=== PATIENT | male | born 1990 | race Caucasian/White ===

== ENCOUNTER 2017-09-06 23:30 | Emergency (ER) | payer MEDICAID, OTHER ==
[~2017-09-06] VITALS: Ht 185.4 cm; Wt 121.0 kg
[2017-09-06 23:45] VITALS: Ht 185.4 cm; Wt 121.0 kg
[2017-09-07] MEDS ORDERED: BUPR150T6 PO (00:54)
[2017-09-07] MEDS ORDERED: LISI10TA2 PO (00:54)
[2017-09-07] MEDS ORDERED: HYDR25TA6 PO (00:54)
[2017-09-07] MEDS ORDERED: AMOX500C2 PO (00:54)
[2017-09-07] MEDS ORDERED: PRED50TA PO (00:54)
--- NOTE | 2017-09-07 00:57 | ERD ---
ER Documentation Chief Complaint Date/Time DATE: 09/07/17 TIME: 00:55 Chief Complaint sore throat x 5 days. +cough, runny nose. green phlegm. Not taking BP meds HPI A 6-year-old male who has a history of strep pharyngitis is here complaining of 5 days of sore throat. He did not take his temperature at home but he states he felt warm. He is tolerating oral intake and also has bilateral ear pain. He is tolerating oral intake. Also has dry cough that is worse at night. He is also stating he has not been taking his blood pressure medication and is asking if I can refill his lisinopril, hydrochlorothiazide, and bupropion ROS All systems reviewed and are negative except as per history of present illness. Medications Home Meds Active Scripts Bupropion Hcl* (Bupropion XL*) 150 Mg Tab.er.24h, 150 MG PO DAILY, #30 TAB.SA Prov:INGA SANTOS PA-C 09/07/17 Hydrochlorothiazide* (Hydrochlorothiazide*) 25 Mg Tab, 25 MG PO DAILY, #30 TAB Prov:INGA SANTOS PA-C 09/07/17 Lisinopril* (Lisinopril*) 10 Mg Tablet, 10 MG PO DAILY, #30 TAB Prov:INGA SANTOS PA-C 09/07/17 Prednisone* (Prednisone*) 50 Mg Tablet, 50 MG PO DAILY, #4 TAB Prov:INGA SANTOS PA-C 09/07/17 Amoxicillin* (Amoxicillin*) 500 Mg Cap, 500 MG PO BID for 7 Days, CAP Prov:INGA SANTOS PA-C 09/07/17 Allergies Allergies: Coded Allergies: No Known Allergy (Unverified , 09/06/17) PMhx/Soc Medical and Surgical Hx: pt denies Surgical Hx History of Surgery: No Hx Neurological Disorder: No Hx Respiratory Disorders: No Hx Cardiac Disorders: Yes (HTN) Hx Psychiatric Problems: No Hx Miscellaneous Medical Probl: No Hx Alcohol Use: No Hx Substance Use: No Hx Tobacco Use: Yes Smoking Status: Current every day smoker FmHx Family History: No diabetes Physical Exam Vitals Vital Signs Date Time Temp Pulse Resp B/P Pulse Ox O2 Delivery O2 Flow Rate FiO2 09/06/17 23:45 98.4 106 18 177/108 98 Physical Exam INITIAL VITAL SIGNS: Reviewed by me GENERAL: Awake, alert and oriented x 4, well appearing, nontoxic, speaking in full sentences. No acute distress HEAD: Atraumatic NECK: Supple. No masses. Full range of motion. No meningismus. No midline tenderness. EYES: EOMI. PERRL. EAR: No tenderness over the mastoids bilaterally. No exudates in the canals. TMs nonerythematous. NOSE: Normal nose. THROAT: Bilateral tonsillar erythema and edema 3+, no exudates, uvula midline, no kissing tonsils RESPIRATORY: Clear to auscultation bilaterally. Symmetric chest wall rise. No wheezing or rales. No accessory muscle use. CV: Regular rate and rhythm. No murmurs, rubs, or gallops. Procedures/MDM Patient has pharyngitis and 3+ swollen tonsils. He is afebrile. He has been off his blood pressure medication and therefore his blood pressure is elevated but there is no evidence of hypertensive emergency. He was given amoxicillin, prednisone and I also gave him refills of bupropion, lisinopril, and hydrochlorothiazide. Patient counseled regarding my diagnostic impression and care plan. Prior to discharge all questions answered. Pt agrees with treatment plan and understands strict return precautions. Pt is instructed to follow up with primary care provider within 24-48 hours. Precautionary instructions provided including instructions to return to the ER if not improving or for any worsening or changing symptoms or concerns. Departure Diagnosis: Primary Impression: Pharyngitis Additional Impression: Hypertension Condition: Stable Patient Instructions: Pharyngitis, Strep (Presumed) Additional Instructions: Call your primary care doctor TOMORROW for an appointment during the next 1-2 days.See the doctor sooner or return here if your condition worsens before your appointment time. INGA SANTOS PA-C Sep 07, 2017 00:57
[2017-09-07 01:21] VITALS: BP 151/96; PULSE 78; RESP 18
== END 2017-09-07 01:25 | disposition home or self-care (01) ==
LOC: FTE 23:30
DX: J02.9 Acute pharyngitis, unspecified (principal); I10 Essential (primary) hypertension; F17.210 Nicotine dependence, cigarettes, uncomplicated
CPT/HCPCS: 99284